=== PATIENT | female | born 1955 | race Caucasian/White ===

== ENCOUNTER 2018-01-13 22:47 | Inpatient (IN) | payer BC ==
[~2018-01-13] VITALS: Ht 165.1 cm; Wt 65.8 kg
[~2018-01-13 22:47] MED LIST: SINGULAIR5 MG PO; [UNRECOGNIZED DRUG - OTHER]
[2018-01-13 22:52] VITALS: BP 167/95
[2018-01-13] MEDS ORDERED: TRAMADOL 50 MG50 MG (23:00)
[2018-01-13] MEDS ORDERED: SENNA8.6 MG (23:01)
[2018-01-13] MEDS ORDERED: NEURONTIN 300300 M1 (23:02)
[2018-01-13 23:10] LABS: ABSOLUTE EOSINOPHILS 0.2 thou/uL (0.0-0.7); ABSOLUTE LYMPHOCYTES 4.6 thou/uL (0.8-5.3); ABSOLUTE MONOCYTES 0.7 thou/uL (0.0-1.2); ABSOLUTE NEUTROPHILS 4.5 thou/uL (1.6-8.1); BASOPHILS 0.4 %; EOSINOPHILS 1.9 %; HEMATOCRIT 33.4 % (37.0-47.0); HEMOGLOBIN 11.6 gm/dL (12.0-15.0); LYMPHOCYTES 45.9 %; MCH 32.7 pg (26.0-34.0); MCHC 34.7 g/dL (28.0-37.0); MCV 94.3 fL (80.0-100.0); MONOCYTES 6.6 %; MPV 7.4 fl. (7.2-11.1); NUCLEATED RBCS 0 /100WBC; PLATELET COUNT* 218 thou/uL (150-400); POLYS 45.2 %; RBC 3.54 mil/uL (4.20-5.00); RDW-CV 12.6 % (10.5-14.5)
[2018-01-13 23:21] LABS: ANION GAP 5 mmol/L (7-16); BUN 12 mg/dL (7-18); CALCIUM 8.8 mg/dL (8.5-10.1); CHLORIDE 90 mmol/L (98-107); CO2 30 mmol/L (21-32); CREATININE 0.7 mg/dL (0.6-1.3); GLUCOSE 119 mg/dL (70-99); POTASSIUM 3.4 mmol/L (3.5-5.1); SODIUM 125 mmol/L (136-145)
[2018-01-13 23:32] LABS: ALBUMIN 3.9 g/dL (3.4-5.0); ALKALINE PHOSPHATASE 74 U/L (46-116); LIPASE 73 U/L (73-393); NT-PRO BRAIN NAT PEPTIDE 159 pg/mL (<300); SGOT 28 U/L (15-37); SGPT 44 U/L (30-65); TOTAL BILIRUBIN 0.4 mg/dL (<0.1-1.0); TOTAL PROTEIN 6.9 g/dL (6.4-8.2); TROPONIN-I LEVEL <0.06 ng/mL (<0.06)
[2018-01-14 00:20] LABS: URINE BILIRUBIN NEGATIVE (Negative); URINE BLOOD NEGATIVE (Negative); URINE CLARITY CLEAR; URINE COLOR YELLOW; URINE GLUCOSE-RANDOM NEGATIVE (Negative); URINE KETONES NEGATIVE (Negative); URINE LEUKOCYTES-REFLEX NEGATIVE (Negative); URINE NITRITE-REFLEX NEGATIVE (Negative); URINE PROTEIN NEGATIVE (Negative); URINE SPECIFIC GRAVITY 1.015 (1.005-1.030); URINE UROBILINOGEN 0.2 E.U./dl (0.2-1.0)
[2018-01-14 00:51] VITALS: BP 156/85
[2018-01-14 01:30] VITALS: BP 156/85
[2018-01-14] MEDS ORDERED: SYNTHROID88 MCG PO (01:57)
[2018-01-14] MEDS ORDERED: DIOVAN 80 MG TA80 M1 PO (01:57)
[2018-01-14] MEDS ORDERED: TRAZODONE HCL100 MG PO (01:59)
[2018-01-14] MEDS ORDERED: FLAX OIL1000 MG PO (02:00)
[2018-01-14] MEDS ORDERED: UNICOMPLEX M TA1 TA1 PO (02:00)
[2018-01-14] MEDS ORDERED: FISH OIL 1,001000 M2 PO (02:01)
[2018-01-14] MEDS ORDERED: GLUCOSAMINE HC500 MG PO (02:02)
[2018-01-14] MEDS ORDERED: CALCIUM 500 +1 EAC5 PO (02:03)
[2018-01-14] MEDS ORDERED: VITAMIN D1000 UNI1 PO (02:04)
[2018-01-14] MEDS ORDERED: STRONTIUM NITRAT1 GM (02:05)
[2018-01-14] MEDS ORDERED: EVENING PRIMR1000 MG PO (02:06)
[2018-01-14 08:00] VITALS: BP 110/59
[2018-01-14 11:30] VITALS: BP 128/66
[2018-01-14 11:46] LABS: CALCIUM 8.9 mg/dL (8.5-10.1); CREATININE 0.8 mg/dL (0.6-1.3)
[2018-01-14 11:48] LABS: POTASSIUM 4.7 mmol/L (3.5-5.1)
[2018-01-14 12:12] VITALS: BP 128/66
--- NOTE | 2018-01-14 12:26 | EKG ---
[place] [address] ELECTROCARDIOGRAM REPORT Name: ELLIOT CARLOS Room: [address] ADM IN M.R.#: [id number] Admission: 01/13/18 Attend Phys: Sommer Crowe Discharge: Date of : 55 Report #: [id number] THIS REPORT FOR: //name// [facility] ED Test Date: 2018-01-13 Test Time: 22:57:43 Pat Name: ELLIOT CARLOS Department: Room: [facility] Gender: F Marketing Communications Associate: YOSSI : 1955 Requested By: Vannesa Glynn Order Number: [id number] MD: Aubrey Faulkner Measurements Intervals [place] Rate: 64 P: 82 OK: 172 QRS: 58 QRSD: 81 T: 47 QT: 396 QTc: 409 Interpretive Statements Sinus rhythm Consider left atrial enlargement Compared to ECG 05/01/2007 18:22:31 ST (T wave) deviation no longer present Electronically Signed On 01-14-2018 12:26:04 CDT by Aubrey Faulkner [email or web address] <ELECTRONICALLY SIGNED> By: Aubrey Faulkner MD, [facility] 01/14/18 1226 [id number] Aubrey Faulkner MD, [facility] /EPI
[2018-01-14] MEDS ORDERED: ASPIR 8181 MG PO (14:52)
--- NOTE | 2018-01-20 15:44 | CON ---
[address] [address] CONSULTATION Name: BREANNAELLIOT BARTLETT Room: [address] IN M.R.#: [id number] Admission: 01/13/18 Attend Phys: Sommer Crowe Discharge: 01/14/18 Date of : 55 Report #: [id number] THIS REPORT FOR: //name// CC: Usama Campos DATE OF SERVICE: 01/14/2018 REQUESTING PHYSICIAN: Dr. Chuy Campos. PRIMARY CARE PHYSICIAN: Dr. Usama Guerrero. CHIEF COMPLAINT: Weakness, fatigue and dull chest pain. HISTORY OF PRESENT ILLNESS: The patient is a 62-year-old woman with history of high blood pressure and hypercholesterol who presented to the emergency room with 2-3 hours of a central to right-sided chest discomfort radiating to her upper back. She had been having severe back pain and had taken several, more than 10 tramadol over a 24-36 hour time period and was having significant associated nausea and weakness and fatigue. She presented with an ECG, which was unremarkable for any acute segment changes and her serial cardiac troponin levels are normal. She has no documented history of heart disease, but this was her second episode of chest discomfort. She had a severe episode of chest pressure a few weeks ago and was scheduled for an outpatient treadmill stress test; but because of her sciatica, she was not able to complete it. PAST MEDICAL HISTORY: Significant for hypertension, hypercholesterolemia. She is not known to be a diabetic. She has, as noted above, no history of congestive heart failure, kidney disease, or tobacco use. PAST SURGICAL HISTORY: No recent surgeries. HOME MEDICATIONS: Include multivitamins, Synthroid 88 mcg daily, Singulair daily, tramadol 50 mg p.r.n. q.8 hours, trazodone 100 mg at bedtime and valsartan 80 mg daily. SOCIAL HISTORY: She is . There is no tobacco use. She is a professional clown. She does not smoke, does not use drugs. REVIEW OF SYSTEMS: CENTRAL NERVOUS SYSTEM: No seizures. Positive weakness. GENERAL: No weight loss or fevers. RESPIRATORY: No cough or sputum production. CARDIOVASCULAR: No palpitations. Positive chest discomfort, no orthopnea, [place] [address] CONSULTATION Name: ELLIOT CARLOS Room: [address]#: [id number] Admission: 01/13/18 Attend Phys: Sommer Crowe Discharge: 01/14/18 Date of : 55 Report #: [id number] PND. Positive syncope, as noted above, near syncope ENDOCRINE: No diabetes. GASTROINTESTINAL: No vomiting, vomiting blood or ulcers. GENITOURINARY: No dysuria or hematuria. HEMATOLOGIC: No anemia or bleeding disorders. ALLERGIES: No seasonal, medical, aspirin or contrast allergies. PSYCHIATRIC: No depression or anxiety. MUSCULOSKELETAL: No arthritis, connective tissue disease. SKIN: No rashes. EYES: She does use glasses. EARS, NOSE, THROAT AND MOUTH: No decreased hearing or bleeding from nose. PHYSICAL EXAMINATION: VITAL SIGNS: Blood pressure 110/59 with a pulse 67, temperature 36.6. GENERAL: This is a thin, middle-aged woman. She is alert, in no apparent distress. HEENT: Eyes are intact. No facial asymmetry. NECK: Supple. No jugular venous distention. Carotid upstrokes are normal. I cannot hear bruits. CARDIOVASCULAR: Regular, I cannot hear a murmur or S3. LUNGS: Clear to auscultation bilaterally. ABDOMEN: Soft, nontender. EXTREMITIES: No peripheral edema. SKIN: Warm and dry. NEUROLOGIC: She is alert and oriented and answers questions appropriately. She is sitting on the edge of the bed. There are no focal neurologic deficits. LABORATORY DATA: Electrocardiogram demonstrates a sinus rhythm, 64 beats per minute with normal ST segments. Cardiac troponin levels 0.06 and 0.05. Her AST is 20, ALT is 44. CK is 114. Hemoglobin is 11.6, white blood cell count is 10, platelet count is 218,000. Chest x-ray shows no acute cardiopulmonary process. IMPRESSION: 1. Chest discomfort. I suspect this could be related to her sedative event associated with anxiety and possible musculoskeletal disease. She has significant history of degenerative joint disease. She does have significant cardiovascular risk factors and then point in fact, this is her second episode of chest discomfort based on her risk factors including age, hypertension, and hyperlipidemia. I recommended a pharmacologic nuclear stress test. 2. Sciatic as noted above. The patient has significant pain and had been sedating herself with pain medications prior to presentation. 3. Hypertension. This seems fairly well controlled. I did not make any changes, she is on ARB therapy. We will arrange for outpatient pharmacologic stress testing. [address] [place] [address] CONSULTATION Name: ELLIOT CARLOS Room: M.215-P DIS IN M.R.#: [id number] Admission: 01/13/18 Attend Phys: Sommer Crowe Discharge: 01/14/18 Date of : 55 Report #: [id number] Thank you for allowing us to participate in her care. We will arrange for followup with our office within the next 4-6 weeks after her stress test. <ELECTRONICALLY SIGNED> By: Aubrey Faulkner MD, FACC 01/20/18 1544 1131 [id number] Faulkner MD, FACC /nt
== END 2018-01-14 15:43 | disposition home or self-care (01) | DRG 311 ==
LOC: M.ERS 22:47 → M.TBA-ER 23:58 → M.2W 01-14 00:30
PROVIDERS: Nurse Practitioner; ADMIT Internal Medicine
DX: I20.8 Other forms of angina pectoris (principal); E87.1 Hypo-osmolality and hyponatremia; J45.909 Unspecified asthma, uncomplicated; E78.00 Pure hypercholesterolemia, unspecified; I10 Essential (primary) hypertension; M54.30 Sciatica, unspecified side; E03.9 Hypothyroidism, unspecified; D64.9 Anemia, unspecified; E55.9 Vitamin D deficiency, unspecified; G89.29 Other chronic pain; M54.5 Low back pain; Z79.899 Other long term (current) drug therapy